=== PATIENT | male | born 1985 | race Caucasian/White ===

== ENCOUNTER 2017-12-11 11:54 | Emergency (ER) | payer OTHER ==
[~2017-12-11] VITALS: Ht 180.3 cm; Wt 83.9 kg
[~2017-12-11 11:54] MED LIST: Crutch1 EACH MISC; ERYT.5TO OD; NAPPHEOPSO OD; Naprosyn500 MG PO; OXYACE5T PO
[2017-12-11] MEDS ORDERED: NAPR550 PO (13:02)
[2018-09-06] MEDS ORDERED: WELLBUTRIN (08:15)
[2018-09-06] MEDS ORDERED: ERYT1OIN LEFTEYE (08:29)
== END 2017-12-11 13:18 | disposition home or self-care (01) ==
LOC: ER 11:54
DX: M25.461 Effusion, right knee (principal); X50.1XXA Overexertion from prolonged static or awkward postures, initial encounter
CPT/HCPCS: 73564; 99283; J1885

== ENCOUNTER 2021-03-06 19:14 | Emergency (ER) | payer OTHER ==
[~2021-03-06] VITALS: Ht 177.8 cm; Wt 86.2 kg
[~2021-03-06 19:14] MED LIST changes: +ERYT1OIN LEFTEYE; +NAPR550 PO; +WELLBUTRIN
[2021-03-06] MEDS ORDERED: PRED10 PO (20:59)
== END 2021-03-06 21:14 | disposition home or self-care (01) ==
LOC: ER 19:14
DX: L23.7 Allergic contact dermatitis due to plants, except food (principal); F17.290 Nicotine dependence, other tobacco product, uncomplicated
CPT/HCPCS: 99282; J1100

== ENCOUNTER 2022-03-31 11:49 | Day surgery (SDC) | payer OTHER ==
[~2022-03-31] VITALS: Ht 177.8 cm; Wt 88.9 kg
[~2022-03-31 11:49] MED LIST changes: +PRED10 PO
--- NOTE | 2022-03-31 12:22 | NUR ---
03/31/22 1222 Kaci Lee CALL LIGHT WITHIN REACH. TETRACAINE AT 1214 PLEDGETT AT 1215 IN RIGHT EYE
== END 2022-03-31 13:34 | disposition home or self-care (01) ==
LOC: ORSCSDS 11:49
PROVIDERS: Ophthalmology
PROC: 08RJ3JZ Replacement of Right Lens with Synthetic Substitute, Percutaneous Approach (ICD-10-PCS; principal; 2022-03-31 13:00)
DX: H25.11 Age-related nuclear cataract, right eye (principal); H21.541 Posterior synechiae (iris), right eye
CPT/HCPCS: J2001; J2250; J3010; J3301; J7040; V2632

== ENCOUNTER 2022-08-13 07:29 | Emergency (ER) | payer SELFPAY ==
[~2022-08-13] VITALS: Ht 177.8 cm; Wt 86.2 kg
[2022-08-13] MEDS ORDERED: IBU800 MG PO (09:26)
== END 2022-08-13 09:35 | disposition home or self-care (01) ==
LOC: ER 07:29
DX: M79.18 Myalgia, other site (principal); M25.522 Pain in left elbow; F17.290 Nicotine dependence, other tobacco product, uncomplicated
CPT/HCPCS: 73080